=== PATIENT | male | born 1980 | race Caucasian/White ===

== ENCOUNTER 2024-11-25 07:17 | Emergency (ER) | payer BC, SELFPAY ==
[2024-11-25 08:16] LABS: Bilirubin Neg (Negative); Blood, Urine 10 (Negative); Clarity Clear (Clear); Glucose, Urine (Dipstick) Normal (Negative); Ketone, Urine Negative (Negative); Leukocyte Negative (Negative); Nitrite Negative (Negative); Protein, Urine (Dipstick) 15 mg/dl (Neg-Trace); Specific Gravity, Urine 1.025 (1.005-1.030); Urobilinogen Normal mg/dL (Less than 2)
[2024-11-25 08:22] LABS: #Basophils 0.02 10x3/uL (0.0-0.2); #Monocytes 0.55 10x3/uL (0.0-1.1); #Neutrophils 3.33 10x3/uL (1.5-8.4); %Basophils 0.4 % (0.0-2.0); %Eosinophils 5.3 % (0.0-6.0); %Lymphocytes 25.1 % (18.0-47.0); %Monocytes 9.8 % (0.0-10.0); %Neutrophils 59.2 % (40.0-75.0); ALT (SGPT) 30 U/L (8-55); AST (SGOT) 19 U/L (5-34); Acetaminophen Less than 10 mcg/mL (Less than 10); Albumin 4.4 g/dL (3.5-5.0); Alcohol Less than 10.0 mg/dL (Less than 10); Alkaline Phosphatase 66 U/L (40-110); Anion Gap 16 mmol/L (10-20); BUN (Urea Nitrogen) 24 mg/dL (8.9-20.6); Calc. Creatinine Clearance 0 mL/min (70-130); Calcium 9.7 mg/dL (7.8-10.44); Carbon Dioxide 23 mmol/L (22-29); Chloride 106 mmol/L (98-107); Estimated GFR 105; Globulin 3.2 g/dL (2.4-3.5); Glucose 103 mg/dL (70-105); Hematocrit 45.9 % (38.8-50.0); Hemoglobin 15.3 g/dL (13.5-17.5); Mean Corpuscular HGB CONC 33.3 g/dL (32.0-36.0); Mean Corpuscular Volume 87.1 fL (81.2-95.1); Mean Platelet Volume 8.5 fL (7.4-10.4); Platelet Count 220 10x3/uL (150-450); Potassium 3.9 mmol/L (3.5-5.1); Protein, Total 7.6 g/dL (6.0-8.3); Red Blood Cell (RBC) Count 5.27 10x6/uL (4.32-5.72); Salicylate Less than 8.0 mg/dL (Less than 8.0); Sodium 141 mmol/L (136-145); White Blood Cell (WBC) Count 5.6 10x3/uL (3.5-10.5)
[2024-11-25 08:22] LABS: Bacteria/HPF Rare-Few HPF (None Seen); CAUTI Indications for Culture Alt mental st,lethar; WBC/HPF 0-3 HPF (0-3)
[2024-11-25 08:23] LABS: Urine Culture Reflex No No
[2024-11-25 08:24] LABS: Amphetamine Not Detected (NotDetected); Barbiturates Screen Not Detected (NotDetected); Benzodiazepine Screen Not Detected (NotDetected); Cocaine Metabolite Screen Not Detected (NotDetected); Methadone Not Detected (NotDetected); Methamphetamine Not Detected (NotDetected); Opiate Screen Not Detected (NotDetected); Oxycodone Screen Not Detected (NotDetected); Phencyclidine (PCP) Not Detected (NotDetected); THC/Cannabinoid Screen Not Detected (NotDetected); Tricyclic Screen Not Detected (NotDetected)
[2024-11-25 08:54] LABS: HIV (1/2) Antibody/Antigen Non-Reactive (NonReactive)
== END 2024-11-25 11:40 | disposition home or self-care (01) ==
LOC: CSHERS 07:17
DX: F43.20 Adjustment disorder, unspecified (principal); Z55.0 Illiteracy and low-level literacy
CPT/HCPCS: 36415; 80053; 80306; 80307; 81001; 84443; 85025; 87389; 93005; 99285